=== PATIENT | male | born 1995 | race Caucasian/White ===

== ENCOUNTER 2018-08-03 02:12 | Emergency (ER) | payer SELFPAY ==
[~2018-08-03] VITALS: Ht 188 cm; Wt 97.5 kg
[2018-08-03 02:49] VITALS: BP_SYST 151
--- NOTE | 2018-08-03 04:30 | NUR ---
Pt ambulatory to bed 1 for evaluation
--- NOTE | 2018-08-03 05:08 | NUR ---
ER Dr. Wesley at bedside examining patient.
[2018-08-03] MEDS ORDERED: KETOROLAC TROMETHAMINE 30 MG VIAL IM ONE (05:15)
--- NOTE | 2018-08-03 05:20 | NUR ---
0520 - Assumed care of pt. Sitting up on gurney, no distress, resp even and unlabored. pt is [id number]. states that he thinks he may have slept on his shoulder wrong on wednesday. states he slept on the couch and that he may have laid on it in an awkward position. pt also states that he boxes a few times a week and may have injured it that way, but no definite or memorable event.
[2018-08-03 05:34] VITALS: BP_SYST 151
--- NOTE | 2018-08-03 06:08 | NUR ---
pt moved to bed 4
== END 2018-08-03 07:00 | disposition home or self-care (01) ==
LOC: SED 02:12
DX: M75.101 Unspecified rotator cuff tear or rupture of right shoulder, not specified as traumatic (principal); Z88.6 Allergy status to analgesic agent; X50.0XXA Overexertion from strenuous movement or load, initial encounter; Y93.89 Activity, other specified; Y92.89 Other specified places as the place of occurrence of the external cause; Y99.8 Other external cause status
CPT/HCPCS: 73020; 96372; 99283; J1885